=== PATIENT | male | born 1935 | race Caucasian/White ===

== ENCOUNTER 2024-08-15 03:17 | Emergency (ER) | payer MEDICARE, SELFPAY ==
[2024-08-15] VITALS (15 sets, daily range): BP systolic 74–121; BP diastolic 43–64; PULSE 49–85; RESP 14–30; TEMP 36.8; O2SAT 90–98
--- NOTE | ~2024-08-15 | XR_ITS ---
EXAMINATION: XR chest 1V portable DATE: 08/15/2024 04:41 INDICATION: Cough. TECHNIQUE: A single frontal view of the chest was obtained. COMPARISON: Chest 2 views 09/03/17 FINDINGS: There is a diffuse interstitial pattern in the lungs, consistent with mild pulmonary edema. No pleural effusion or pneumothorax. The heart size is normal. Median sternotomy wires and mediastin al surgical clips are seen, likely from prior coronary artery bypass grafting. Surgical clips in the right upper quadrant are likely from cholecystectomy. IMPRESSION: 1. Mild pulmonary edema. Reviewed, dictated and finalized at location A. AL CHIEF CREATIVE OFFICER IMPRESSION: 1. Mild pulmonary edema.
--- NOTE | ~2024-08-15 | XR_ITS ---
EXAMINATION: XR pelvis 1-2V DATE: 08/15/2024 04:42 INDICATION: Right hip pain. TECHNIQUE: An anteroposterior view of the pelvis was obtained. COMPARISON: None. FINDINGS: There are bilateral total hip arthroplasties. There is a transverse periprosthetic fracture of proximal right femur. The distal fracture fragment demonstrates 7 mm lateral displacement. 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 A catheter overlies the bladder. IMPRESSION: 1. Transverse periprosthetic fracture of proximal right femur. 2. Total left hip arthroplasty in near-anatomic alignment. Reviewed, dictated and finalized at location A. IAL COLLECTIONS LIBRARIAN
--- NOTE | ~2024-08-15 | XR_ITS ---
EXAMINATION: XR femur RT min 2V DATE: 08/15/2024 04:42 INDICATION: Right leg pain. TECHNIQUE: 2 views of right femur on 5 radiographs were obtained. COMPARISON: None. FINDINGS: There is a total right hip arthroplasty. There is a transverse periprosthetic fracture of p roximal right femur. The distal fracture fragment demonstrates 10 mm lateral displacement and 5 mm po sterior displacement. 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 There is a catheter in the bladder. IMPRESSION: 1. Transverse periprosthetic fracture of proximal right femur. Reviewed, dictated and finalized at location A. ISTICIAN
--- NOTE | 2024-08-15 03:44 | ECG_ITS ---
Test Date: 2024-08-15 03:55:39 Measurements Intervals [place] Rate: 65 P: -14 MT: 231 QRS: 257 QRSD: 162 T: 86 QT: 484 QTc: 504 Interpretive Statements SINUS RHYTHM WITH FIRST DEGREE AV BLOCK RIGHT AXIS DEVIATION LEFT BUNDLE BRANCH BLOCK BASELINE ARTIFACT- I, II, III, AVR, AVL, AVF, V6 ABNORMAL ECG No previous ECG available for comparison Electronically Signed On 08-15-2024 07:02:47 ACCREDITATION SPECIALIST by Loy Jones D.O.
[2024-08-15 04:10] LABS: Basophils Absolute Auto 0.1 K/mm3 (0.0-0.1); Basophils Percent Auto 0.7 % (0.2-1.2); Eosinophils Absolute Auto 0.3 K/mm3 (0-0.3); Hematocrit 36.4 % (42.0-52.0); Hemoglobin 11.9 g/dL (14.0-18.0); Immature Granulocyte Absolute 0.07 K/mm3 (0.00-0.031); Immature Granulocyte Percent A 0.4 % (0-0.5); Lymphocytes Absolute Auto 1.61 K/mm3 (0.9-3.2); Lymphocytes Percent Auto 10.2 % (18.3-44.2); Mean Corpuscular HGB Conc 32.7 g/dl (32-36); Mean Corpuscular Hemoglobin 33.1 pg (26-34); Mean Corpuscular Volume 101.1 fl (80-100); Mean Platelet Volume 9.7 fl (7.4-10.4); Monocytes Absolute Auto 1.5 K/mm3 (0.1-0.6); Monocytes Percent Auto 9.2 % (2.6-8.5); Neutrophils Absolute Auto 12.2 K/mm3 (1.3-6.7); Neutrophils Percent Auto 77.5 % (45.5-73.1); Platelet Count Result 204 k/mm3 (150-375); Red Cell Distribution Width 13.5 % (11.5-14.5); White Blood Count 15.8 K/mm3 (4.5-10.0)
[2024-08-15] MEDS: SODIUM CHLORIDE 0.9% IV 1,000 ML 999 ML (04:18)
[2024-08-15 04:20] LABS: INR 1.3; Prothrombin Time 16.5 Seconds (11.1-14.7)
[2024-08-15 04:23] LABS: Alanine Aminotransferase 19 U/L (6-50); Alkaline Phosphatase 73 U/L (38-126); Anion Gap 0 mmol/L (4-12); Aspartate Amino Transferase 31 U/L (17-59); Bilirubin,Total 1.3 mg/dL (0.2-1.3); Blood Urea Nitrogen 18 mg/dL (9-20); Calcium 7.9 mg/dL (8.4-10.2); Carbon Dioxide 31 mmol/L (22-30); Chloride 106 mmol/L (98-107); Estimated CRCL calculation 42 ml/min; Estimated Glomerular Filt Rate > 60; Glucose 143 mg/dL (65-110); Potassium 4.2 mmol/L (3.4-5.0); Sodium 137 mmol/L (137-145)
[2024-08-15 04:31] LABS: Add Urine Microscopic? YES; Appearance Urine Turbid (Clear); Bacteria Urine 4+ /hpf; Bilirubin Urine Negative (Negative); Blood Urine 1+ (Negative); Color Urine Yellow (Yellow); Glucose Urine UA Negative (Negative); Ketones Urine Trace mg/dL (Negative); Leukocyte Esterase Ur 1+ LEU/UL (Negative); Need Manual Microscopic Reviewed; Nitrate Urine Positive (Negative); Non Pathogenic Casts 0-2; Protein Urine 1+ mg/dL (Negative); RBC Urine 21-50 /hpf (0-2); Squamous Epithelial Cell Urine None Seen /hpf (Few); WBC Urine 21-50 /hpf (0-3); pH Urine 7.5 (5.0-9.0)
--- NOTE | 2024-08-15 05:01 | ED.LOWEXIN ---
HPI - Extremity Injury (Lower) General Chief Complaint: Extremity Injury, Lower Stated Complaint: fall Source: patient and EMS Mode of arrival: EMS Limitations: no limitations History of Present Illness HPI Narrative: This is an 89-year-old male, with history of hypertension hyperlipidemia, brought in by EMS from home after a ground level fall. The patient states he was walking to his bathroom, when he lost his balance and fell on his right side. He complains of right hip pain rated 8/10 described as dull. He denies head injury or loss of consciousness. He denies chest pain, shortness of breath, palpitations or lightheadedness. He has no other complaints at this time. 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 HEAD: Normocephalic, atraumatic. EYES: PERRLA and EOMI. ENT: Nares clear, no rhinorrhea or epistaxis. Mucous membranes moist. Oropharynx without tonsillar hypertrophy exudate or other lesions. NECK: Supple. No midline spine tenderness to palpation, no step-off or crepitus CHEST: Clear to auscultation. No respiratory distress. No wheezes rales or rhonchi HEART: Regular rate and rhythm. No murmur heard. Normal peripheral pulses. ABDOMEN: Soft, nontender, nondistended, normal active bowel sounds. BACK: No midline spine tenderness to palpation, no step-off or crepitus EXTREMITIES: tender palpation over the right proximal thigh without obvious deformity. Range of motion of the right hip limited by pain. Normal range of motion of all other extremities. No edema. SKIN: Warm, dry, no rash. NEURO: Alert and oriented x3. No focal deficit. Strength testing limited at the right hip due to pain. Strength otherwise 5/5 in all extremities. Sensation intact bilaterally PSYCH: Normal mood and affect. Course Course Emergency Course: 05:04 - X-ray of the right femur demonstrates a periprostatic displaced fracture that appears to be of the neck. Chest x-ray by my interpretation is not concerning for acute cardiopulmonary process. X-ray of the pelvis not concerning for pelvis fracture. CBC demonstrates elevated white blood cell count of 15.8 with hemoglobin of 11.9 and platelets of 204. INR 1.3. Chemistries demonstrate hypocalcemia with calcium of 7.9 but is otherwise unremarkable. UA demonstrates changes consistent with UTI. Given the patient's elevated white blood cell count and UA findings, I have a strong suspicion for sepsis. Will give an additional L of IV fluids for 30 cc/kg bolus and Rocephin. I discussed the patient with [facility] ED physician, Dr. Tarango who accepts trauma transfer. I discussed these findings recommendations with the patient voiced understanding and is comfortable with plan. All questions answered to his satisfaction. 05:23 - The patient intermittently became bradycardic to the 40s and appeared lethargic. sinus rhythm was noted on the monitor. I suspect this may have been the cause of his fall. Pacer pads were placed. Blood pressure improved to 109/55. Vital Signs Vital signs: Vital Signs Temperature 98.3 F 08/15/24 03:17 Temperature 98.3 F 08/15/24 03:17 Pulse Rate 65 08/15/24 05:00 Respiratory Rate 23 H 08/15/24 05:00 Blood Pressure 90/49 L 08/15/24 05:00 Pulse Oximetry 97 08/15/24 05:00 Oxygen Delivery Nasal Cannula 08/15/24 03:24 Oxygen Flow Rate 1 08/15/24 03:24 MDM - Extremity Injury (Lower) MDM Narrative Medical decision making narrative: Plan: Imaging, pain control, labs, IV fluids, reassess Differential Diagnosis Differential diagnosis: Likely fracture of femur and other ( pneumonia, UTI, metabolic abnormality, dehydration, arrhythmia, other) Lab Data 08/15/24 04:05 08/15/24 04:05 Labs: Lab Results 08/15/24 Range/Units 04:05 WBC 15.8 H (4.5-10.0) K/mm3 RBC 3.60 L (4.6-6.20) M/mm3 Hgb 11.9 L (14.0-18.0) g/dL Hct 36.4 L (42.0-52.0) % MCV 101.1 H (80-100) fl MCH 33.1 (26-34) pg MCHC 32.7 (32-36) g/dl RDW 13.5 (11.5-14.5) % Plt Count 204 (150-375) k/mm3 MPV 9.7 (7.4-10.4) fl Immature Gran % (Auto) 0.4 (0-0.5) % Neut % (Auto) 77.5 H (45.5-73.1) % Lymph % (Auto) 10.2 L (18.3-44.2) % Leslie % (Auto) 9.2 H (2.6-8.5) % Eos % (Auto) 2.0 (0-4.4) % Baso % (Auto) 0.7 (0.2-1.2) % Lymph # (Auto) 1.61 (0.9-3.2) K/mm3 Leslie # (Auto) 1.5 H (0.1-0.6) K/mm3 Eos # (Auto) 0.3 (0-0.3) K/mm3 Baso # (Auto) 0.1 (0.0-0.1) K/mm3 Abs Immat Gran (auto) 0.07 H (0.00-0.031) K/mm3 Absolute Neuts (auto) 12.2 H (1.3-6.7) K/mm3 Absolute Nucleated RBC 0.000 (0.0-0.012) K/mm3 Nucleated RBC % 0.0 (0.0-0.2) % PT 16.5 H (11.1-14.7) Seconds INR 1.3 Sodium 137 (137-145) mmol/L Potassium 4.2 (3.4-5.0) mmol/L Chloride 106 (98-107) mmol/L Carbon Dioxide 31 H (22-30) mmol/L Anion Gap 0 L (4-12) mmol/L BUN 18 (9-20) mg/dL Creatinine 1.00 (0.7-1.3) mg/dL Estim Creat Clear Calc 42 ml/min Estimated GFR > 60 (59 - ) Glucose 143 H (65-110) mg/dL Calcium 7.9 L (8.4-10.2) mg/dL Total Bilirubin 1.3 (0.2-1.3) mg/dL AST 31 (17-59) U/L ALT 19 (6-50) U/L Alkaline Phosphatase 73 (38-126) U/L Total Protein 6.0 L (6.3-8.2) g/dL Albumin 3.0 L (3.5-5.1) g/dL Urine Color Yellow (Yellow) Urine Appearance Turbid H (Clear) Urine pH 7.5 (5.0-9.0) Ur Specific [place] 1.020 (1.001-1.035) Urine Protein 1+ H (Negative) mg/dL Urine Glucose (UA) Negative (Negative) mg/dL Urine Ketones Trace H (Negative) mg/dL Ur Blood (Man) 1+ H (Negative) Urine Nitrate Positive H (Negative) Urine Bilirubin Negative (Negative) Urine Urobilinogen 2.0 H (<2.0) mg/dL Add Ur Microanalysis Reviewed Leukocyte Esterase Rfl 1+ H (Negative) SATHISH/UL Urine RBC 21-50 H (0-2) /hpf Urine WBC 21-50 H (0-3) /hpf Ur Squamous Epith Cells None seen (Few) /hpf Urine Bacteria 4+ /hpf Urine Casts 0-2 ECG Data EKG #1: Attestation: I personally reviewed and interpreted this ECG as follows: ECG completion date: 08/15/24 ECG completion time: 03:55 Prior ECG tracings: not available for review Interpretation: Sinus rhythm with first-degree AV block, rate 65, right axis deviation, intraventricular conduction delay, no ST segment elevations or T-wave inversions concerning for ischemia by Sgarbossa criteria, QTC prolonged at 504 Discharge Plan Discharge Clinical Impression: Acute UTI, Closed right femoral fracture, Sepsis, Bradycardia Patient Disposition: Acute Care Hospital Condition: Serious Prescriptions: No Action lisinopril 20 mg tablet 20 mg PO DAILY Qty: 90 3RF atorvastatin 40 mg tablet 40 mg PO QPM Qty: 90 2RF Rx Instructions: Follow up appt due metoprolol tartrate 25 mg tablet See Rx Instructions .ROUTE .COMPLEX Qty: 90 0RF Dose Instruction: TAKE 1/2 (ONE-HALF) TABLET BY MOUTH TWICE DAILY Rx Instructions: TAKE 1/2 (ONE-HALF) TABLET BY MOUTH TWICE DAILY Follow-up/Referrals: Jojo Chung MD [Primary Care Provider] - Time of Disposition: 05:04
[2024-08-15] MEDS: SODIUM CHLORIDE 0.9% IV 1,000 ML 999 ML IV CONT (05:11)
[2024-08-15] MEDS: CALCIUM GLUCONATE 1,000 MG/10 ML VIAL 1000 MG IV PUSH (05:11)
--- NOTE | 2024-08-15 05:57 | PC.NURSE ---
this rn spoke with pt daughter to give update on patient condition and transfer.
== END 2024-08-15 06:27 | disposition short-term general hospital (02) ==
PROVIDERS: Emergency Provider Preventive Medicine Aerospace Medicine; PCP Family Medicine
DX: A41.9 Sepsis, unspecified organism (principal); S72.001A Fracture of unspecified part of neck of right femur, initial encounter for closed fracture; M97.01XA Periprosthetic fracture around internal prosthetic right hip joint, initial encounter; N39.0 Urinary tract infection, site not specified; R00.1 Bradycardia, unspecified; I10 Essential (primary) hypertension; E78.00 Pure hypercholesterolemia, unspecified; F17.200 Nicotine dependence, unspecified, uncomplicated; Z95.1 Presence of aortocoronary bypass graft; Z96.643 Presence of artificial hip joint, bilateral; Z90.49 Acquired absence of other specified parts of digestive tract; I44.0 Atrioventricular block, first degree; I44.7 Left bundle-branch block, unspecified; W18.39XA Other fall on same level, initial encounter
CPT/HCPCS: 36415; 71045; 72170; 73552; 80053; 81001; 83605; 85025; 85610; 87040; 87077; 87086; 87186; 93005; 96361; 96365; 96375; 99285; J0612; J0696; J7030